=== PATIENT | female | born 1955 | race Caucasian/White ===

== ENCOUNTER 2024-12-22 20:40 | Outpatient (REF) | payer MEDICARE, BC, SELFPAY | END 2024-12-22 20:41 | disposition home or self-care (01) | LOC: LBN 20:40 | PROVIDERS: PCP Internal Medicine; Visit Provider Nurse Practitioner Family | DX: N30.01 Acute cystitis with hematuria (principal) | CPT/HCPCS: 87077; 87086; 87186 ==